=== PATIENT | female | born 1980 | race Asian ===

== ENCOUNTER 2016-04-01 15:35 | Emergency (ER) | payer OTHER ==
[~2016-04-01] VITALS: Wt 64.5 kg
[~2016-04-01 15:35] MED LIST: ACYC800T57 PO
[2016-04-01] MEDS ORDERED: HYDROCODONE/APAP (5/325) TAB PO ONE (16:30)
--- NOTE | 2016-04-01 16:56 | RADRPT ---
PROCEDURE: XR right hand. CLINICAL INDICATION: Hand pain TECHNIQUE: Three views are available for review. COMPARISON: No prior studies are available for comparison. FINDINGS: There is an acute transverse fracture involving the fifth proximal phalangeal base with dorsal angul ation. The osseous structures are otherwise normal in mineralization, architecture and alignment. No osse ous lesion is identified. The joints are unremarkable. The soft tissues are unremarkable. IMPRESSION: Acute transverse fracture involving the fifth proximal phalangeal base with dorsal angulation RPTAT: HGDB .Marcell Bravo MD, MD Date Time Electronically viewed and signed by .Marcell Bravo MD, on 04/01/2016 16:55 .B/
[2016-04-01] MEDS ORDERED: LIDOCAINE 1% (MDV) 20 ML INJ SC ONE (17:30)
[2016-04-01] MEDS ORDERED: CLINDAMYCIN 300 MG CAP PO ONE (18:00)
[2016-04-01] MEDS ORDERED: IBUP-1542 PO (18:15)
[2016-04-01] MEDS ORDERED: HYDR-906 PO (18:15)
--- NOTE | 2016-04-01 18:17 | ERD ---
ER Documentation Chief Complaint Date/Time DATE: 04/01/16 TIME: 18:13 Chief Complaint RIGHT HAND PINKY LACERATION FROM TRAUMA. NO MOTOR DEFICT HPI This is a 35-year-old female who presents to the emergency room for evaluation of a right fifth digit pain after falling while doing roller [place]. This patient was seen in fast track by our physician medical assistant instructor and I was called to evaluate this patient due to extreme pain, and abnormal shape of the right pinky finger. Patient states that she is having pain in the right pinky that she describes achy pain worse with movement. She denies any other trauma or head injury ROS All systems reviewed and are negative except as per history of present illness. Medications Home Meds Reported Medications Acyclovir* (Zovirax*) Unknown Strength Tablet, PO 5 TIMES DAILY for 7 Days, TAB 09/22/15 Allergies Allergies: Coded Allergies: No Known Allergy (Unverified , 09/22/15) PMhx/Soc Medical and Surgical Hx: pt denies Medical Hx, pt denies Surgical Hx Hx Alcohol Use: No Hx Substance Use: No Hx Tobacco Use: No Physical Exam Vitals Vital Signs Date Time Temp Pulse Resp B/P Pulse Ox O2 Delivery O2 Flow Rate FiO2 04/01/16 15:44 98.5 69 20 130/84 100 Physical Exam Const: No acute distress, resting comfortably Head: Atraumatic Eyes: Normal Conjunctiva ENT: Normal External Ears, Nose and Mouth. Neck: Full range of motion..~ No meningismus. Resp: Clear to auscultation bilaterally Cardio: Regular rate and rhythm, no murmurs Abd: Soft, non tender, non distended. Normal bowel sounds Skin: No petechiae or rashes Back: No midline or flank tenderness Ext: 2 cm laceration to the palmar aspect of the right hand proximal to the proximal phalanges, visible deformity with dorsal angulation noted of the right fifth digit. Cap refill less than 2 seconds, motor function intact distal to the injury. Thinks no cyanosis, or edema Neur: Awake and alert Psych: Normal Mood and Affect Results 24 hrs Current Medications Medications (Trade) Dose Ordered Sig/Oliverio Route PRN Reason Start Time Stop Time Status Last Admin Dose Admin Acetaminophen/ Hydrocodone Bitart ([place] (5/325)) 1 tab ONCE ONCE PO 04/01/16 16:30 2/12/17 16:31 DC 04/01/16 16:52 Lidocaine (Xylocaine 1% (Mdv) 20 ml) 20 ml ONCE ONCE SC 04/01/16 17:30 04/01/16 17:31 DC Clindamycin HCl (Cleocin) 300 mg ONCE ONCE PO 04/01/16 18:00 04/01/16 18:01 DC Procedures/MDM X-ray Hand 3V interpreted by me: Scaphoid: Normal Bones: Proximal phalangeal fracture with dorsal angulation Joints: No dislocation Foreign body: None This 35-year-old female presents to the ER for evaluation of right hand pain after being involved in a roller [place] accident. I evaluated this patient after being called by a physician medical assistant instructor in the back. I did note this patient had dorsal angulation of the right fifth digit. X-ray does confirm fracture with dorsal angulation. The patient did have a digital block completed by her physician medical assistant instructor. I did reduce the finger. Please see reduction note. This patient was placed in a right ulnar gutter splint. This patient will be discharged at this time with a prescription for Myrna Suarez for breakthrough pain, clindamycin. She will also be given referral for orthopedic surgery, and other local resources for possible hand specialist. Reduction by me: Anesthesia: Local anesthesia with lidocaine 1%, digital block Location: Right fifth digit Technique: Gentle traction and manipulation Results: Druze of normal anatomic positioning Neurovascularly intact post procedure. [Splint Assessment: Neurovascularly intact post splint placement with good fit.] Departure Diagnosis: Primary Impression: Closed fracture dislocation of finger Condition: Stable COBY NELSON DO Apr 01, 2016 18:17
--- NOTE | 2016-04-01 18:36 | RADRPT ---
PROCEDURE: XR right hand. CLINICAL INDICATION: Closed reduction TECHNIQUE: Three views of the hand available for review. COMPARISON: 04/01/2016 at 1642 hours FINDINGS: There is a fiberglass cast in place. There is closed reduction of the acute transverse fracture inv olving the fifth proximal phalangeal base with dorsal angulation. The osseous structures are otherwise normal in mineralization, architecture and alignment. No osseou s lesion is identified. The joints are unremarkable. The soft tissues are unremarkable. IMPRESSION: Closed reduction of acute transverse fracture involving the fifth proximal phalangeal base. RPTAT: HGDB .Marcell Bravo MD, Date Time Electronically viewed and signed by .Marcell Bravo MD, on 04/01/2016 18:36 .B/
--- NOTE | 2016-04-01 18:57 | EN ---
Date/Time of Note Date/Time of Note DATE: 04/01/16 TIME: 18:48 ER Progress Note Patient was seen along with my supervising physician Dr. Cornejo. ED COURSE: The patient was stable throughout ED course. I kept the patient and/or family informed of laboratory and diagnostic imaging results throughout the ED course. Dr. Cornejo completed manual reduction of the patient's right 5th digit fracture. DIAGNOSTIC IMAGING: Read by radiologist. DIAGNOSTIC IMAGING REPORT Patient: RICARDO DONOHUE : 1980 Age: 35 Sex: F MR #: [id number] DOS: 04/01/16 1817 Ordering MD: RICARDO MEJIA PA-C Location: [facility] Room/Bed: PROCEDURE: XR right hand. CLINICAL INDICATION: Closed reduction TECHNIQUE: Three views of the hand available for review. COMPARISON: 04/01/2016 at 1642 hours FINDINGS: There is a fiberglass cast in place. There is closed reduction of the acute transverse fracture involving the fifth proximal phalangeal base with dorsal angulation. The osseous structures are otherwise normal in mineralization, architecture and alignment. No osseous lesion is identified. The joints are unremarkable. The soft tissues are unremarkable. IMPRESSION: Closed reduction of acute transverse fracture involving the fifth proximal phalangeal base. RPTAT: HGDB .Marcell Bravo MD, Date Time Electronically viewed and signed by .Marcell Bravo MD, on 04/01/2016 18:36 .B/ CC: RICARDO MEJIA PA-C LACERATION REPAIR: The patient was verbally consented prior to procedure. Patient was explained the risks, benefits and alternatives to this procedure. Length: 2 cm Irrigation: Thorough irrigation was performed with normal saline and adequate pressure. Inspection: The wound was thoroughly explored and no foreign bodies, deep tissue , tendon or structural injuries were noted. Anesthesia: 5 cc Repair: The area was prepared and draped in the usual sterile manner with the wound exposed. 2 sutures loose simple interrupted sutures were placed with good wound closure and wound approximation. Bleeding was minimal. The patient tolerated the procedure well with no complications. The wound was dressed with iodoform dressing. The patient was neurovascularly intact post-procedure. Post- procedural wound care was discussed with the patient. SPLINT APPLICATION: The patient was verbally consented at bedside prior to splint application. Patient was explained the risks, benefits and alternatives to this procedure. The patient was neurovascularly intact prior to and status post application of the splint. The patient tolerated the procedure well with no complications. Splint type: ulnar gutter splint Extremity: right hand Indication: Transverse fracture of the fifth proximal phalangeal base RICARDO MEJIA PA-C Apr 01, 2016 18:57
[2016-04-01] MEDS ORDERED: CLIN-73 PO (19:00)
== END 2016-04-01 19:14 | disposition home or self-care (01) ==
LOC: FTE 15:35
DX: S62.616A Displaced fracture of proximal phalanx of right little finger, initial encounter for closed fracture (principal); W18.39XA Other fall on same level, initial encounter; Y92.9 Unspecified place or not applicable
CPT/HCPCS: 26725; 73130; Z7610